=== PATIENT | female | born 1935 | race Two or more races ===

== ENCOUNTER 2023-02-06 13:06 | Inpatient (IN) | payer OTHER ==
[~2023-02-06] VITALS: Ht 165.1 cm; Wt 61.2 kg
[2023-02-06] MEDS ORDERED: PRAVASTATIN SOD40 MG PO (13:53)
[2023-02-06] MEDS ORDERED: LOTENSIN40 MG PO (13:54)
[2023-02-06] MEDS ORDERED: PEPCID AC20 MG PO (13:54)
[2023-02-06 17:24] LABS: HEMATOCRIT 47.6 % (36.0-45.00); HEMOGLOBIN 16.3 g/dL (12.0-15.00); MEAN CELL VOLUME 89.3 fL (80.00-100.00); MEAN CORPUSCULAR HEMOGLOBIN 30.6 pg (27.00-32.0); MEAN CORPUSCULAR HGB CONC 34.2 g/dl (32.0-36.0); PLATELET COUNT 186 K/uL (150-450); RED BLOOD COUNT 5.33 M/uL (4.00-6.00); RED CELL DISTRIBUTION WIDTH 13.8 % (11.5-14.5)
[2023-02-06 17:41] LABS: INR 0.98; PARTIAL THROMBOPLASTIN TIME 26.5 SECONDS (22.0-34.0); PROTHROMBIN TIME 10.3 SECONDS (9.0-11.5)
[2023-02-06 17:45] LABS: BILIRUBIN TOTAL 0.65 mg/dL (0.3-1.2); CALCIUM 10.7 mg/dL (8.5-10.1); CREATININE SERUM 2.15 mg/dL (0.55-1.02); GFR 21.63; GLOBULINA 3.8 G/DL (2.4-3.5); POTASSIUM 4.06 mEq/L (3.5-5.1); TOTAL PROTEIN 7.8 gm/dL (6.4-8.2)
[2023-02-06 17:55] LABS: PH,URINE 5.5 (5.0-8.0); URINE APPEARANCE Clear; URINE BILIRRUBIN Negative (NEGATIVE); URINE BLOOD Trace; URINE COLOR Yellow; URINE LEUKOCYTE Negative; URINE NITRATE Negative; URINE UROBILINOGEN 0.2 E.U./dl
[2023-02-06 17:58] LABS: URINE BACTERIA 51.9 uL (0.0-1933); URINE EPITHELIAL CELLS 6.4 uL (0.0-38.8); URINE RBC 4.5 uL (0.0-20.8); URINE WBC 11.7 uL (0.0-23.2)
[2023-02-06 18:13] LABS: URINE GLUCOSE 100 MG/DL (NEGATIVE); URINE PROTEIN 300 (NEGATIVE)
[2023-02-07] MEDS ORDERED: MAXIMUM D3325 MCG (09:24)
[2023-02-07] MEDS ORDERED: FAMOTIDINE40 MG (09:24)
[2023-02-08 06:28] LABS: HEMATOCRIT 37.2 % (36.0-45.00); HEMOGLOBIN 12.7 g/dL (12.0-15.00); MEAN CELL VOLUME 89.5 fL (80.00-100.00); MEAN CORPUSCULAR HEMOGLOBIN 30.6 pg (27.00-32.0); MEAN CORPUSCULAR HGB CONC 34.2 g/dl (32.0-36.0); PLATELET COUNT 159 K/uL (150-450); RED BLOOD COUNT 4.15 M/uL (4.00-6.00)
[2023-02-08] MEDS ORDERED: ELIQUIS2.5 MG PO (07:28)
[2023-02-08] MEDS ORDERED: PERCOCET 5-3251 EACH PO (07:28)
[2023-02-09 06:55] LABS: HEMATOCRIT 37.5 % (36.0-45.00); HEMOGLOBIN 12.5 g/dL (12.0-15.00); MEAN CELL VOLUME 90.3 fL (80.00-100.00); MEAN CORPUSCULAR HEMOGLOBIN 30.1 pg (27.00-32.0); MEAN CORPUSCULAR HGB CONC 33.3 g/dl (32.0-36.0); RED BLOOD COUNT 4.15 M/uL (4.00-6.00); RED CELL DISTRIBUTION WIDTH 13.6 % (11.5-14.5)
[2023-02-09 07:00] LABS: PLATELET COUNT 130 K/uL (150-450)
== END 2023-02-09 13:35 | DRG 522 ==
LOC: ER 13:07 → SURG 20:27
PROVIDERS: General Practice; ADMIT Orthopaedic Surgery; ATTEND Orthopaedic Surgery
PROC: 0MBL0ZZ Excision of Right Hip Bursa and Ligament, Open Approach (ICD-10-PCS; 2023-02-07)
PROC: 0SRS0J9 Replacement of Left Hip Joint, Femoral Surface with Synthetic Substitute, Cemented, Open Approach (ICD-10-PCS; principal; 2023-02-07 14:00)
DX: S72.012A Unspecified intracapsular fracture of left femur, initial encounter for closed fracture (principal); W19.XXXA Unspecified fall, initial encounter; Y93.9 Activity, unspecified; Y92.009 Unspecified place in unspecified non-institutional (private) residence as the place of occurrence of the external cause; M81.0 Age-related osteoporosis without current pathological fracture; M16.12 Unilateral primary osteoarthritis, left hip